=== PATIENT | male | born 1945 | race Caucasian/White ===

== ENCOUNTER 2016-11-21 08:57 | Day surgery (SDC) | payer MEDICARE, OTHER ==
[~2016-11-21] VITALS: Ht 172.7 cm; Wt 83.6 kg
--- NOTE | ~2016-11-21 | PRO ---
PATIENT:KOURTNEY TANG JR MEDICAL RECORD: [id number] : 49 LOCATION:D.OPS ADMISSION DATE: 11/21/16 PROCEDURE PERFORMED BY: TANO ALMARAZ MD DATE OF PROCEDURE: 11/21/2016 DATE OF PROCEDURE: 11/21/2016. HYDROSTATIC TUBING TESTER: Tano Almaraz MD. PROCEDURE: Flexible sigmoidoscopy with hemorrhoidal banding times 4. INDICATION: The patient is a 71-year-old white male with history of coronary artery disease, who basically presents for evaluation with 2-3 year history of progressive hematochezia bright red blood per rectum. He had a colonoscopy just last year, which revealed small to moderate size internal hemorrhoids and very mild sigmoid diverticulosis. He is now having a little prolapse as well and therefore was scheduled for flexible sigmoidoscopy with hemorrhoidal banding. PREMEDICATION: Taper anesthesia. INSTRUMENT: Olympus video gastroscope. FINDINGS: Rectal exam was normal. The gastroscope was passed through the rectum into the mid sigmoid colon without difficulty. The exam was normal other than lgule-md-cvhyulpt sized internal hemorrhoids as well as very mild sigmoid diverticulosis. I do not see any polyps or mass lesions. I therefore put the 6 shooter band on the tip of the scope, reinserted into the patient, and placed 4 bands in a circumferential manner just proximal to the dentate line with good results. The patient tolerated the procedure well without any immediate complications. IMPRESSION: 1. Small to moderate size internal hemorrhoids, now status post hemorrhoidal banding times 4. 2. Very mild sigmoid diverticulosis. 3. Otherwise, normal flexible sigmoidoscopy. PLAN: 1. Avoid straining with bowel movement. 2. Follow up with me as needed. 3. Repeat hemorrhoidal banding on a p.r.n. basis. TRANSINT:[id number] Voice Confirmation ID: [id number] DOCUMENT ID: [id number] PROCEDURE NOTE [id number] KOURTNEY TANG JR TANO ALMARAZ MD CC: CECELIA MOTLEY MD [id number] DICTATION DATE: 11/21/16 1249 CASHIER CLERK: 11/22/16 0151 [facility] 11/21/16 [facility] [address] [place] [address]
--- NOTE | ~2016-11-21 | HP ---
PATIENT: KOURTNEY TANG JR MEDICAL RECORD: [id number] ACCOUNT: [id number] LOCATION:[facility] : 49 ADMISSION DATE: 11/21/16 HISTORY AND PHYSICAL EXAMINATION REFERRING PHYSICIAN: Cecelia Motley MD. HISTORY OF PRESENT ILLNESS: The patient is a 71-year-old white male who basically presents with chronic hematochezia, has been progressive over the past 2-3 years. His last colonoscopy was in 2016 and reveals mild sigmoid diverticulosis and small internal hemorrhoids. Because of this persistent hematochezia, he is now considering possible hemorrhoidal banding. PAST MEDICAL HISTORY: As above. He also has had coronary artery disease and kidney stones and thyroid disease status post thyroidectomy. PHYSICAL EXAMINATION: GENERAL: Reveals a well-nourished white male in no acute distress. VITAL SIGNS: Stable. He is afebrile. CHEST: Clear. HEART: Regular rate and rhythm. ABDOMEN: Soft, nontender. EXTREMITIES: No edema. IMPRESSION: 1. Persistent somewhat progressive hematochezia, probably due to his known internal hemorrhoids and probably will need hemorrhoidal banding. 2. History of mild sigmoid diverticulosis. PLAN: Flex sig with probable banding. TRANSINT:[id number] Voice Confirmation ID: [id number] DOCUMENT ID: [id number] TANO MOSS MD CC: CECELIA MOTLEY MD [id number] DICTATION DATE: 11/21/16 1237 OLEOMARGARINE MAKER: 11/21/16 1443 [facility] 11/21/16 [id number] [place] [address]
[2016-11-21 09:53] LABS: BASOPHILS 0.5 % (0-2); EOSINOPHILS 2.6 % (0-7); HEMATOCRIT 42.3 % (42.0-54.0); HEMOGLOBIN 14.4 g/dL (13.5-17.5); IMMATURE GRANULOCYTES 0.2 % (0-5); LYMPHOCYTES 28.4 % (15-50); MCH 32.6 pg (26.0-34.0); MCV 95.7 fL (80.0-100.0); MEAN PLATELET VOLUME 10.9 fL (7.4-10.4); MONOCYTES 6.4 % (2-11); NEUTROPHILS 61.9 % (40-80); PLATELET COUNT 201 10x3/uL (130-400); RBC 4.42 10x6/uL (4.20-6.10); RDW 12.7 % (11.5-14.5); WBC 5.8 10x3/uL (4.8-10.8)
[2016-11-21 10:01] LABS: APTT 31.6 SECONDS (22.8-39.4); INR 0.99 (0.85-1.17); PROTIME 12.9 SECONDS (11.6-15.0)
[2016-11-21 10:30] VITALS: BP 153/82; Ht 172.7 cm; Wt 83.6 kg
[2016-11-21] MEDS ORDERED: COREG 3.1253.125 MG PO (10:32)
[2016-11-21] MEDS ORDERED: CARDIZEM CD240 MG PO (10:33)
[2016-11-21] MEDS ORDERED: LEVOTHYROXINE150 MCG PO (10:33)
[2016-11-21] MEDS ORDERED: ZOCOR20 MG PO (10:34)
[2016-11-21] MEDS ORDERED: EXELON1 PATCH .2 TRANSDERM (10:35)
[2016-11-21] MEDS ORDERED: PRINIVIL20 MG PO ×2 (10:36)
[2016-11-21] MEDS ORDERED: HYDROCHLOROTH12.5 M1 PO (10:36)
[2016-11-21] MEDS ORDERED: BAYER CHEWABLE81 MG PO (10:36)
[2016-11-21] MEDS ORDERED: VITAMIN D2000 UNIT PO (10:37)
[2016-11-21] MEDS ORDERED: FISH OIL 1,2001 CAP PO (10:37)
[2016-11-21] MEDS ORDERED: CINNAMON500 MG PO (10:38)
[2016-11-21] MEDS ORDERED: GARLIC (10:39)
[2016-11-21] MEDS ORDERED: VITAMIN B-12500 MC1 PO (10:39)
[2016-11-21] MEDS ORDERED: B-6 ×2 (10:40→10:41)
--- NOTE | 2016-11-21 14:29 | NUR ---
1400--IV DC'D, PT UP TO DRESS. HYACINTH KUMARI 1412--DISCHARGE INSTRUCTIONS GIVEN, PT VERBALIZES UNDERSTANDING. PT OFF UNIT VIA WC. HYACINTH KUMARI
== END 2016-11-21 14:15 | disposition home or self-care (01) ==
LOC: D.OPS 08:57 → D.ENDO 11:00 → D.OPS 11:00
PROVIDERS: Anesthesiology
DX: K64.8 Other hemorrhoids (principal); I10 Essential (primary) hypertension; E03.9 Hypothyroidism, unspecified; Z95.1 Presence of aortocoronary bypass graft; Z01.812 Encounter for preprocedural laboratory examination

== ENCOUNTER 2018-03-24 20:07 | Inpatient (IN) | payer MEDICARE, OTHER ==
[~2018-03-24] VITALS: Ht 172.7 cm; Wt 83.9 kg
--- NOTE | ~2018-03-24 | HP ---
PATIENT: KOURTNEY TANG JR MEDICAL RECORD: [id number] ACCOUNT: [id number] LOCATION:D.MS [facility] : 49 ADMISSION DATE: 03/24/18 PCP: CECELIA MOTLEY MD HISTORY AND PHYSICAL EXAMINATION DATE OF ADMISSION: 03/24/2018 CHIEF COMPLAINT: Abdominal pain, leg pain secondary to black bite. HISTORY OF PRESENT ILLNESS: The patient is a 72-year-old gentleman who had been apparently working in his yard, moving boulders. He felt a stinging pain in his abdomen. Then, he noticed a black . The patient states over the ensuing couple of hours, he became increasingly nauseated as well as having abdominal pain as well as leg pain, presented to the Emergency Room where it was felt the patient warranted admission. PAST MEDICAL HISTORY: Significant that he has had coronary artery bypass grafting. The patient also has had hypertension and hyperlipidemia. He has had hypothyroidism. FAMILY HISTORY: Father of heart disease. Mother of leukemia. SOCIAL HISTORY: The patient is a nonsmoker, nondrinker. He is , retired from [employer], [employer] which he is attended. ALLERGIES: He has no known drug allergies. MEDICATIONS: Include aspirin 81 mg once a day. He is also on carvedilol 3.125 p.o. b.i.d., diltiazem 240 mg b.i.d., hydrochlorothiazide 12.5 once a day, KCl 10 mEq once a day, levothyroxine 150 mcg once a day, lisinopril 20 mg p.o. b.i.d., simvastatin 20 mg once a day, Exelon patch 4.6 MG TRANSDERM changing daily, vitamin C 1000 mg tablets, vitamin D3 2000 international units once a day. REVIEW OF SYSTEMS: CONSTITUTIONAL: He denies any headaches, seizure or syncope. HEENT: Denies change in visual or auditory acuity. PULMONARY: He denies any shortness of breath, cough or congestion. CARDIOVASCULAR: No chest pain, palpitation, PND or orthopnea. GASTROINTESTINAL: He has had no chronic nausea, vomiting, melena or hematochezia. GENITOURINARY: No urgency, frequency, or dysuria. PHYSICAL EXAMINATION: VITAL SIGNS: In the Emergency Room, the patient's temperature was 97.9, his pulse 54, respirations 20, his blood pressure 177/78, his pulse 98. HEENT: Head is normocephalic. No lesions. Ears: TMs clear. Eyes: Pupils equal, round, reactive to light. His extraocular movements are intact. Nasal cavity, oral cavity, oropharynx clear. NECK: Supple. There is no adenopathy. HEART: Has a regular rate. LUNGS: Clear. ABDOMEN: Soft. He does have several superficial erythematous lesions on the anterior abdomen. EXTREMITIES: He has good strength, good range of motion. HISTORY AND PHYSICAL [id number] KOURTNEY TANG JR LABORATORY DATA: His white count was elevated at 11.6, hemoglobin 15.5, hematocrit 45.2, his platelets were 244. His cardiac enzymes are all unremarkable. His sodium was 144, potassium 3.3, chloride 105, CO2 is 27, BUN is 19, creatinine 1.0. Lactic acid was 2.3. Liver functions unremarkable. ASSESSMENT: Status post black bite. PLAN: The patient will be admitted for pain control as well as being placed on IV muscle relaxer as well as Solu-Medrol, IV hydration. Continue to evaluate. TRANSINT:[id number] Voice Confirmation ID: [id number] DOCUMENT ID: [id number] CECELIA MOTLEY MD at 0716 CC: [id number] DICTATION DATE: 03/25/18744 INDUSTRIAL COMMERCIAL GROUNDSKEEPER: 03/25/18823 [facility] [place] 03/27/18 [facility] [address] [place] [address]
--- NOTE | ~2018-03-24 | DS ---
PATIENT:KOURTNEY TANG JR :49 MEDICAL RECORD: [id number] DISCHARGE SUMMARY ADMISSION DATE: 03/24/18 DISCHARGE DATE: 03/27/18 DATE OF ADMISSION: 03/24/2018 DATE OF DISCHARGE: 03/27/2018 ADMISSION DIAGNOSIS: Abdominal and leg pain secondary to black spider bite. DISCHARGE DIAGNOSIS: Abdominal and leg pain secondary to black spider bite. HOSPITAL COURSE: The patient had an uneventful hospital course. He was admitted. Pain control initially with IV meds, changed to p.o. hydrocodone 7.5, good pain control. The patient is anxious to discharge home. Still having pain but is well controlled with oral medications. He is discharged to home in significantly improved condition. PHYSICAL EXAMINATION: VITAL SIGNS ON DISCHARGE: Temperature 98.4, blood pressure 150/68, heart rate 60, respirations 20, O2 sats 93% room air. HEART: Regular rate and rhythm. LUNGS: Clear. ABDOMEN: Soft, bowel sounds positive. EXTREMITIES: Present times 4. No rash. No swelling. DISPOSITION: The patient is discharged on oral prednisone taper, p.o. hydrocodone 7.5 one p.o. q. 6 hours p.r.n. DISCHARGE INSTRUCTIONS: Will follow up with Dr. Altamirano next week, will resume his home medications, see chart for further details. TRANSINT:[id number] Voice Confirmation ID: [id number] DOCUMENT ID: [id number] SHAZIA BEACH DO at 1030 CC: [id number] DICTATION DATE: 03/27/18 1501 CONSUMER SALES REPRESENTATIVE: 03/28/18 0356 [facility] 03/27/18 [place] [address]
[~2018-03-24 20:07] MED LIST: B-6; BAYER CHEWABLE81 MG PO; CARDIZEM CD240 MG PO; CINNAMON500 MG PO; COREG 3.1253.125 MG PO; EXELON1 PATCH .2; FISH OIL 1,2001 CAP PO; GARLIC; HYDROCHLOROTH12.5 M1 PO; LEVOTHYROXINE150 MCG PO; PRINIVIL20 MG PO; VITAMIN B-12500 MC1 PO; VITAMIN D2000 UNIT PO; ZOCOR20 MG PO
[2018-03-24 20:49] LABS: BASOPHILS 0.4 % (0-2); EOSINOPHILS 1.9 % (0-7); HEMATOCRIT 45.2 % (42.0-54.0); HEMOGLOBIN 15.5 g/dL (13.5-17.5); IMMATURE GRANULOCYTES 0.2 % (0-5); LYMPHOCYTES 13.9 % (15-50); MCH 32.5 pg (26.0-34.0); MCHC 34.3 g/dL (31.0-37.0); MCV 94.8 fL (80.0-100.0); MEAN PLATELET VOLUME 11.3 fL (7.4-10.4); MONOCYTES 4.7 % (2-11); NEUTROPHILS 78.9 % (40-80); RBC 4.77 10x6/uL (4.20-6.10); RDW 13.3 % (11.5-14.5); WBC 11.6 10x3/uL (4.8-10.8)
[2018-03-24 20:50] LABS: PLATELET COUNT 244 10x3/uL (130-400)
[2018-03-24 21:02] LABS: APTT 28.3 SECONDS (22.8-39.4); INR 0.96 (0.85-1.17); PROTIME 12.4 SECONDS (11.6-15.0)
[2018-03-24 21:04] LABS: D-DIMER-QUANTITATIVE < 0.27 ug/mLFEU (0.20-0.54)
[2018-03-24 21:10] LABS: ALBUMIN 4.2 g/dL (3.4-5.0); ALKALINE PHOSPHATASE 103 U/L (46-116); ALT (SGPT) 22 U/L (10-68); BILIRUBIN - TOTAL 0.57 mg/dL (0.2-1.3); CALCIUM 8.8 mg/dL (8.5-10.1); CARBON DIOXIDE 27.1 mmol/L (21.0-32.0); CHLORIDE - SERUM 105 mmol/L (98-107); CREATININE - SERUM 1.2 mg/dL (0.6-1.3); POTASSIUM - SERUM 3.3 mmol/L (3.5-5.1); PROTEIN - SERUM 7.9 g/dL (6.4-8.2); SODIUM 144 mmol/L (136-145); UREA NITROGEN 19 mg/dL (7-18); eGFR NON AFRICAN AMERICAN 64 mL/min (90-120)
[2018-03-24 21:20] LABS: CKMB 1.2 U/L (0.0-3.6); CREATINE KINASE 159 UL (21-232)
[2018-03-24 21:30] VITALS: BP 177/78
[2018-03-24 21:38] LABS: CALC OSMOLALITY 293 mosm/kg (275-300); GLUCOSE 191 mg/dL (74-106); TROPONIN-I < 0.017 ng/mL (0.000-0.060)
[2018-03-24 22:00] VITALS: BP 195/90
[2018-03-24 22:14] LABS: APPEARANCE CLEAR (CLEAR); BILIRUBIN NEGATIVE (NEGATIVE); COLOR YELLOW (YELLOW); GLUCOSE NEGATIVE (NEGATIVE); KETONE NEGATIVE (NEGATIVE); NITRITE NEGATIVE (NEGATIVE); PROTEIN NEGATIVE (NEGATIVE); SPECIFIC GRAVITY 1.015 (1.005-1.020); UROBILINOGEN NORMAL (NORMAL)
[2018-03-24 22:24] LABS: WHITE CELLS - URINE OCC /hpf (0-5)
[2018-03-24 22:30] VITALS: BP 167/81
[2018-03-24] MEDS ORDERED: KLOR-CON 1010 MEQ PO (23:49)
[2018-03-25 01:20] VITALS: BP 188/87; BMI 28.1
[2018-03-25 04:56] LABS: BASOPHILS 0.1 % (0-2); EOSINOPHILS 0 % (0-7); HEMOGLOBIN 15.1 g/dL (13.5-17.5); IMMATURE GRANULOCYTES 0.2 % (0-5); LYMPHOCYTES 10.8 % (15-50); MCH 32.5 pg (26.0-34.0); MCHC 34.3 g/dL (31.0-37.0); MCV 94.6 fL (80.0-100.0); MONOCYTES 0.2 % (2-11); NEUTROPHILS 88.7 % (40-80); PLATELET COUNT 259 10x3/uL (130-400); RBC 4.65 10x6/uL (4.20-6.10); RDW 13.5 % (11.5-14.5); WBC 9.7 10x3/uL (4.8-10.8)
[2018-03-25 05:24] LABS: ALBUMIN 4.2 g/dL (3.4-5.0); ALKALINE PHOSPHATASE 105 U/L (46-116); ALT (SGPT) 24 U/L (10-68); BILIRUBIN - TOTAL 0.43 mg/dL (0.2-1.3); CALC OSMOLALITY 276 mosm/kg (275-300); CALCIUM 8.7 mg/dL (8.5-10.1); CARBON DIOXIDE 28.2 mmol/L (21.0-32.0); CHLORIDE - SERUM 103 mmol/L (98-107); CREATINE KINASE 168 UL (21-232); CREATININE - SERUM 1.1 mg/dL (0.6-1.3); GLUCOSE 166 mg/dL (74-106); POTASSIUM - SERUM 3.1 mmol/L (3.5-5.1); PROTEIN - SERUM 7.9 g/dL (6.4-8.2); SODIUM 136 mmol/L (136-145); TROPONIN-I < 0.017 ng/mL (0.000-0.060); eGFR NON AFRICAN AMERICAN 70 mL/min (90-120)
[2018-03-25 05:25] LABS: UREA NITROGEN 14 mg/dL (7-18)
[2018-03-25 06:18] VITALS: BP 183/90
[2018-03-25 08:09] VITALS: BP 179/89
[2018-03-25 09:13] LABS: CKMB 1.8 U/L (0.0-3.6); CREATINE KINASE 192 UL (21-232); TROPONIN-I < 0.017 ng/mL (0.000-0.060)
[2018-03-25 12:54] VITALS: BP 145/54
[2018-03-25 13:40] VITALS: Ht 172.7 cm; Wt 83.9 kg
[2018-03-25 15:43] LABS: CKMB 2.8 U/L (0.0-3.6); CREATINE KINASE 295 UL (21-232); POTASSIUM - SERUM 3.1 mmol/L (3.5-5.1); TROPONIN-I < 0.017 ng/mL (0.000-0.060)
[2018-03-25 16:00] VITALS: BP 158/70
[2018-03-25 21:45] VITALS: BP 107/77
[2018-03-26 05:09] VITALS: BP 151/66
[2018-03-26 05:27] LABS: HEMOGLOBIN 13.3 g/dL (13.5-17.5); MCH 32.1 pg (26.0-34.0); MCHC 34.1 g/dL (31.0-37.0); MCV 94.2 fL (80.0-100.0); MEAN PLATELET VOLUME 11.8 fL (7.4-10.4); PLATELET COUNT 246 10x3/uL (130-400); RBC 4.14 10x6/uL (4.20-6.10); RDW 13.7 % (11.5-14.5); WBC 20.9 10x3/uL (4.8-10.8)
[2018-03-26 05:53] LABS: ALBUMIN 3.6 g/dL (3.4-5.0); ALKALINE PHOSPHATASE 83 U/L (46-116); ALT (SGPT) 21 U/L (10-68); BILIRUBIN - TOTAL 0.39 mg/dL (0.2-1.3); CALC OSMOLALITY 277 mosm/kg (275-300); CALCIUM 8.4 mg/dL (8.5-10.1); CARBON DIOXIDE 28.7 mmol/L (21.0-32.0); CHLORIDE - SERUM 103 mmol/L (98-107); GLUCOSE 151 mg/dL (74-106); PROTEIN - SERUM 6.7 g/dL (6.4-8.2); SODIUM 136 mmol/L (136-145); eGFR NON AFRICAN AMERICAN 78 mL/min (90-120)
[2018-03-26 05:55] LABS: UREA NITROGEN 20 mg/dL (7-18)
[2018-03-26 07:21] LABS: HYPOCHROMASIA OCC; LYMPHOCYTES 8 % (15-50); MONOCYTES 9 % (2-11); NEUTROPHILS 77 % (40-80); PLATELET ESTIMATE NORMAL
[2018-03-26 08:13] VITALS: BP 149/55
[2018-03-26 12:00] VITALS: BP 164/62
[2018-03-26 20:00] VITALS: BP 178/81
[2018-03-27 04:00] VITALS: BP 150/68
[2018-03-27] MEDS ORDERED: NORCO 7.5/325 T1 TA1 PO (14:51)
[2018-03-27] MEDS ORDERED: PREDNISONE10 MG PO (14:53)
[2018-03-27 16:31] VITALS: BP 158/67
== END 2018-03-27 19:30 | disposition home or self-care (01) | DRG 918 ==
LOC: D.ER 20:07 → D.MS 22:31
PROVIDERS: Family Medicine
DX: T63.311A Toxic effect of venom of black widow spider, accidental (unintentional), initial encounter (principal); I10 Essential (primary) hypertension; E78.5 Hyperlipidemia, unspecified; E03.9 Hypothyroidism, unspecified; Z95.1 Presence of aortocoronary bypass graft

== ENCOUNTER → 2019-05-26 08:41 | Outpatient (CLI) | payer MEDICARE, OTHER ==
[2018-03-25 13:40] VITALS: BMI 28.1
[~2019-05-26 08:41] MED LIST changes: +KLOR-CON 1010 MEQ PO; +NORCO 7.5/325 T1 TA1 PO; +PREDNISONE10 MG PO
== END | disposition home or self-care (01) ==
LOC: D.HCCARDIO 08:41
PROVIDERS: ATTEND Internal Medicine Cardiovascular Disease
DX: I25.10 Atherosclerotic heart disease of native coronary artery without angina pectoris (principal)

== ENCOUNTER → 2019-06-28 14:07 | Outpatient (CLI) | payer MEDICARE, OTHER ==
[2018-03-25 13:40] VITALS: BMI 28.1
== END | disposition home or self-care (01) ==
LOC: D.HCCECHO 14:07
PROVIDERS: ATTEND Internal Medicine Cardiovascular Disease
DX: I10 Essential (primary) hypertension (principal)

== ENCOUNTER → 2020-09-27 09:21 | Outpatient (CLI) | payer MEDICARE, OTHER ==
[2018-03-25 13:40] VITALS: BMI 28.1
== END | disposition home or self-care (01) ==
LOC: D.HCCARDIO 09:21
PROVIDERS: ATTEND Internal Medicine Cardiovascular Disease
DX: I25.10 Atherosclerotic heart disease of native coronary artery without angina pectoris (principal)

== ENCOUNTER 2020-10-09 07:32 | Day surgery (SDC) | payer MEDICARE, OTHER ==
[~2020-10-09] VITALS: Ht 172.7 cm; Wt 80.7 kg
--- NOTE | ~2020-10-09 | HEMODYNAMI ---
PATIENT:KOURTNEY TANG JR MEDICAL RECORD: [id number] : 49 LOCATION:[facility] ADMISSION DATE: 10/09/20 Generatedon:19:52 Patient name: KOURTNEY TANG Patient #: [id number] SSN: [id number] : 1945 Date of study: 10/09/2020 Page: Of Hemodynamic Procedure Report Patient Data Patient Demographics Procedure consent was obtained First Name: KOURTNEY Gender: Male Last Name: CLYDE Suffix: [facility] Initial: Darcie : 1945 Patient #: [id number] Age: 75 year(s) Race: SSN: [id number] Additional ID: [id number] Contact details Address: [address] [place] [address] rd State: [place] City: [place] Zip code: [address] Past Medical History Allergies: No known allergies Admission Admission Data Admission Date: 10/09/2020 Admission Time: 7:32 Arrival Date: 10/09/2020 Arrival Time: 0:00 Admit Source: Other Insurance Payor: Medicare [facility] #: [id number] Procedure Procedure Types Cath Procedure Diagnostic Procedure LHC LHC w/Coronaries w/Grafts Sedation Charges Moderate Sedation 10-24 minutes Procedure Description Procedure Date Procedure Date: 10/09/2020 Procedure Start Time: 9:31 Procedure Staff Name Function Keith Godoy MD Performing Physician Marielena Jones RT Monitor Brittany Mesa RT Scrub Levi Ortiz RN Nurse Procedure Data Cath Procedure Fluoroscopy Diagnostic fluoroscopy Total fluoroscopy Time: 4.4 time: 4.4 min min Diagnostic fluoroscopy Total fluoroscopy dose: 733 dose: 733 mGy mGy Contrast Material Contrast Material Type Amount (ml) Isovue 300 106 Entry Location Entry Primary Successful Side Size Upsize Upsize Entry Closure Succes sful Closure Location (Fr) 1 (Fr) 2 (Fr) Remarks Device Remarks Femoral Right 5 Fr Exoseal artery Estimated blood loss: 5 ml Diagnostic catheters Device Type Used For End Catheter Placement MULTIPACK JL 4.0 5Fr Left Coronary catheter Angiography MULTIPACK 3DRC 5Fr Right Coronary catheter Angiography MULTIPACK 3DRC 5Fr SVG Angiography catheter DIAGNOSTIC AR MOD 5Fr SVG Angiography Catheter ([id number]) DIAGNOSTIC IM 5Fr Internal mammary catheter ([id number]) arteriography MULTIPACK Pigtail 5 Fr Aortic Root catheter Angiography MULTIPACK Pigtail 5 Fr LV Angiography catheter Procedure Complications No complications Procedure Medications Medication Administration Route Dosage 0.9% NaCl I.V. 100 ml/hr Oxygen etCO2 Nasal cannula 2 l/min Heparin Flush Bag added to field 2 bags (1000units/500ml NS) Lidocaine 2% added to field 20 Versed I.V. 1 mg Fentanyl I.V. 50 mcg Versed I.V. 1 mg Fentanyl I.V. 50 mcg Hemodynamics Rest Heart Rate: 45 (bpm) Pressure Samples Time Site Value (mmHg) Purpose Heart Use Rate(bpm) 9:33 AO 146/66(94) Snapshot 46 9:43 LV 127/6,24 Snapshot 47 9:43 AO 145/62(95) Pullback 55 9:43 LV 181/-10,80 Pullback 55 Gradients Valve Time Site 1 Site 2 Mean SEP/DFP Peak To Heart Use (mmHg) (sec/min) Peak Rate (mmHg) (bpm) Aortic 9:43 LV AO 14 23 36 55 181/-10,80 145/62(95) Calculations Valve P-P Mean Valve Index Valve Source Name Gradient Area Flow (cm2) Aortic 36 14 36 14 Snapshots Pre Cath Intra NCS Post Cath Vital Signs Time Heart Resp SPO2 etCO2 NIBP (mmHg) Rhythm Pain Sedation Rate (ipm) (%) (mmHg) Status Level (bpm) 9:14:56 55 19 98 35.2 170/87(140) NSR 0 (11) 10(A) , No pain 9:19:22 48 14 96 1.5 143/76(106) NSR 0 (11) 10(A) , No pain 9:23:38 45 20 96 1.4 132/74(106) NSR 0 (11) 10(A) , No pain 9:27:50 40 10 96 2.2 142/75(104) NSR 0 (11) 10(A) , No pain 9:32:08 41 10 96 48.7 158/67(87) NSR 0 (11) 10(A) , No pain 9:36:30 50 19 96 31.5 134/71(115) NSR 0 (11) 10(A) , No pain 9:40:43 48 11 95 17.2 151/76(110) NSR 0 (11) 10(A) , No pain 9:45:02 51 21 97 39.7 153/73(113) NSR 0 (11) 10(A) , No pain 9:49:25 48 11 97 12.7 157/70(118) NSR 0 (11) 10(A) , No pain Medications Time Medication Route Dose Verified Delivered Reason Notes Effe ctiveness by by 9:15:26 0.9% NaCl I.V. 100 Levi Levi Per ml/hr Angel Ortiz physician RN RN 9:15:34 Oxygen etCO2 2 Levi Levi for low 02 Nasal l/min Lorigan Lorigan sats cannula RN RN 9:15:44 Heparin Flush added 2 Levi Levi used for Bag to bags Lorigan Lorigan procedure (1000units/500ml field RN RN NS) 9:15:54 Lidocaine 2% added 20ml Levi Levi for local to vial Lorigan Lorigan anesthetic field RN RN 9:30:54 Versed I.V. 1 mg Levi Levi for Lorigan Lorigan sedation RN RN 9:31:01 Fentanyl I.V. 50 Levi Levi for mcg Lorigan Lorigan sedation RN RN 9:42:18 Versed I.V. 1 mg Levi Levi for Lorigan Lorigan sedation RN RN 9:42:23 Fentanyl I.V. 50 Levi Levi for mcg Lorigan Lorigan sedation RN logistics support Log Time Note 8:43:50 Informed consent obtained and on chart 8:44:16 Diagnostic Cath Status : Elective 8:44:31 Arrival Date: 10/09/2020 12:00:00 AM 8:44:36 Admit Source: Other 8:44:41 Insurance Payor : Medicare 8:57:45 Levi Ortiz RN sent for patient. Start room use. 8:57:47 Time tracking: Regular hours (M-F 7:00 - 5:00) 8:57:52 Plan of Care:Hemodynamics will remain stable., Cardiac rhythm will remain stable., Comfort level will be maintained., Respiratory function will remain adequate., Patient/ family verbilizes understanding of procedure., Procedure tolerated without complication., Recovers from procedure without complications.. 9:04:04 Patient received from Pre/Post Procedure Room to CCL 2 Alert and oriented. Tansferred to table in Supine position. 9:04:05 Warm blankets applied, and evette hugger turned on for patient comfort. 9:04:06 Correct patient and procedure confirmed by team. 9:04:06 ECG and BP/O2 sat monitors applied to patient. 9:04:08 Full Disclosure recording started 9:12:48 Vital chart was started 9:12:51 Rhythm: sinus bradycardia 9:13:10 H&P Date Dictated: 09/19/2020 Within 30 days and on chart., H&P Addendum completed by physician on day of procedure. (MUST COMPLETE FOR ALL OUTPATIENTS). 9:13:11 Pre-procedure instructions explained to patient. 9:13:11 Pre-op teaching completed and patient verbalized understanding. 9:14:46 Family in patients room. 9:14:47 Patient NPO since Midnight. 9:14:55 Patient allergic to No known allergies 9:14:57 Is the patient allergic to Iodine/contrast media? No. 9:14:59 Is patient on blood thinner?No 9:15:15 Bleeding risk .1%. 9:15:17 Patient diabetic? No. 9:15:20 Previous problem with sedation/anesthesia? No ? 9:15:21 Snore? Yes 9:15:22 Sleep apnea? No 9:15:23 Deviated septum? No 9:15:24 Opens mouth fully? Yes 9:15:24 Sticks out tongue? Yes 9:15:26 0.9% NaCl 100 ml/hr I.V. was administered by Levi Ortiz RN; Per physician; Verbal order read back and verified. 9:15:26 Airway obstruction? No ? 9:15:27 Dentures? No ? 9:15:34 Oxygen 2 l/min etCO2 Nasal cannula was administered by Levi Ortiz RN; for low 02 sats; Verbal order read back and verified. 9:15:44 Heparin Flush Bag (1000units/500ml NS) 2 bags added to field was administered by Levi Ortiz RN; used for procedure; Verbal order read back and verified. 9:15:54 Lidocaine 2% 20ml vial added to field was administered by Levi Ortiz RN; for local anesthetic; Verbal order read back and verified. 9:17:22 Pre procedure: right dorsailis pedis pulse 2+ Normal; easily identifiable; not easily obliterated 9:17:27 Patient pain scale 0/10 ?. 9:17:33 IV patent on arrival in left forearm with 0.9% NaCl at O. 9:17:40 Lab results completed and on chart. 9:17:46 Stress Test: yes; abnormal INFERIOR 9:17:49 Risk of Mortality: .1 9:17:52 Risk of blood transfusion: .2 9:17:54 Risk of JARETH: .2 9:17:57 Right groin area was prepped with chlora-prep and draped in sterile fashion 9:17:58 Alarms reviewed by R. N. 9:17:59 Sharps counted by scrub and verified by R.N. 9:18:03 Use device set Femoral Dx 9:18:04 ACIST Syringe (96470) opened to sterile field. 9:18:05 Bag Decanter (2002S) opened to sterile field. 9:18:05 Medline Cath Pack ([id number]) opened to sterile field. 9:18:07 ACIST Hand Control (49378) opened to sterile field. 9:18:07 ACIST Manifold (82332) opened to sterile field. 9:18:08 DIAGNOSTIC Multipack 5Fr catheter set (EU7418) opened to sterile field. 9:18:14 EMERALD Guide Wire (502-925) opened to sterile field. 9:18:15 SHEATH 5FR [place] (CUH899) opened to sterile field. 9:18:30 Baseline sample Acquired. 9:25:41 Zero performed for pressure channel P1 9:30:08 Final Timeout: patient, procedure, and site verified with staff and physician. All members of the team are in agreement. 9:30:10 Right groin site verified by team. 9:30:13 Fire Safety Assessment: A--An alcohol-based skin anteseptic being used preoperatively., C--Open oxygen or nitrous oxide is being used., D--An ESU, laser, or fiber-optic light is being used. 9:30:16 Physical assessment completed. ASA score P 2 - A patient with mild systemic disease as per Keith Godoy MD. 9:30:41 2) 60-89 Mildly reduced kidney function, and other findings (as for stage 1) point to kidney disease. 9:30:43 Maximum allowable contrast dose (3.7 X eGFR X 0.75)244 ml. 9:30:47 Sedation plan: IV Moderate Sedation Medication:Versed, Fentanyl 9:30:52 Procedure started. 9:30:54 Versed 1 mg I.V. was administered by Levi Ortiz RN; for sedation; Verbal order read back and verified. 9:31:01 Fentanyl 50 mcg I.V. was administered by Levi Ortiz RN; for sedation; Verbal order read back and verified. 9:31:01 Local anesthetic to right femoral artery with Lidocaine 2% by Keith Godoy MD.INITIAL ACCESS ONLY 9:32:55 A 5 Fr sheath was inserted into the Right Femoral artery 9:33:30 A MULTIPACK JL 4.0 5Fr catheter was advanced over the wire and used for Left Coronary Angiography. 9:34:34 Catheter removed. 9:35:29 A MULTIPACK 3DRC 5Fr catheter was advanced over the wire and used for Right Coronary Angiography. 9:36:41 A MULTIPACK 3DRC 5Fr catheter was advanced over the wire and used for SVG Angiography.TO RCA 9:37:31 Catheter removed. 9:39:15 A DIAGNOSTIC AR MOD 5Fr Catheter ([id number]) was advanced over the wire and used for SVG Angiography. 9:39:18 Catheter removed. 9:39:30 A DIAGNOSTIC IM 5Fr catheter ([id number]) was advanced over the wire and used for Internal mammary arteriography.TO LAD 9:41:52 Catheter removed. 9:42:18 Versed 1 mg I.V. was administered by Levi Ortiz RN; for sedation; Verbal order read back and verified. 9:42:23 Fentanyl 50 mcg I.V. was administered by Levi Ortiz RN; for sedation; Verbal order read back and verified. 9:42:28 A MULTIPACK Pigtail 5 Fr catheter was advanced over the wire and used for LV Angiography. 9:43:31 LV gram done using PILLAI 9:43:32 LV hemodynamics recorded. 9:43:36 EF : 50 % 9:44:09 A MULTIPACK Pigtail 5 Fr catheter was advanced over the wire and used for Aortic Root Angiography. 9:46:46 Catheter removed. 9:46:58 Sheath removed intact; hemostasis achieved with Exoseal to the Right Femoral artery. 9:47:00 Procedure ended.(Physican Out) 9:47:29 Fluoroscopy time 04.40 minutes. 9:47:35 Flurop Dose total: 733 9:47:35 Fluoroscopy dose: 733 mGy 9:47:47 Dose Area Product 103 mGy/cm. 9:47:51 Contrast amount:Isovue 300 106ml. 9:47:54 Maximum allowable dose exceeded? No. 9:47:55 Sharps counted by scrub and verified by R.N. 9:47:57 Insertion/operative site no bleeding no hematoma. 9:48:02 Post-op/insertion site Right Femoral artery dressed using a 4 x 4 and Tegaderm. 9:48:05 Post right femoral artery:stable, clean and dry 9:48:09 Post Procedure Pulses reassessed and unchanged 9:48:17 Post-procedure physical assessment completed. ASA score P 2 - A patient with mild systemic disease as per Keith Godoy MD. 9:48:21 Post procedure rhythm: unchanged. 9:48:25 Estimated blood loss: 5 ml 9:48:26 Post procedure instruction explained to patient.Patient verbalizes understanding. 9:48:27 Patient needs reinforcement of post procedure teaching. 9:48:42 Procedure type changed to Cath procedure, Diagnostic procedure, LHC, LHC w/Coronaries w/Grafts, Sedation Charges, Moderate Sedation 10-24 minutes 9:48:45 Procedure and supply charges have been captured, reviewed, submitted and are correct. 9:48:48 Procedure Complication : No complications 9:48:52 Operative report dictated upon procedure completion. 9:48:53 See physician's report for complete and final results. 9:49:08 Report given to Pre/Post Procedure Room. 9:49:27 EXOSEAL 5Fr (EX500) opened to sterile field. 9:49:28 Tegaderm 4 x 4 (1626W) opened to sterile field. 9:49:45 Patient transfered to Pre/Post Procedure Room with Stretcher. 9:51:21 End room use (Document Last) 9:51:49 End room use (Document Last) 9:52:00 Brittany Mesa RT(R) was relieved by Marielena Counts RT(R) as monitoring person 9:52:00 End room use (Document Last) 9:52:20 End room use (Document Last) 9:52:27 Marielena Counts RT(R) was relieved by Marielena Counts RT(R) as monitoring person 9:52:27 End room use (Document Last) 9:52:57 Vital chart was stopped Device Usage Item Name Manufacture Quantity Catalog Hospital Part Current Minimal L ot# / Number Charge Number Stock Stock Serial# Code ACIST Acist 1 80732 924998 236011 248622 20 Syringe Medical (47701) Systems Inc Bag Microtek 1 643139 93356 915360 5 Decanter Medical Inc. () Medline Medline 1 [id number] 242045 39025 575371 5 Cath Pack ([id number]) ACIST Hand Acist 1 05759 732831 450692 656949 5 Control Medical (58605) Systems Inc ACIST Acist 1 16047 086121 114034 659216 5 Manifold Medical (29051) Systems Inc DIAGNOSTIC Cardinal 1 [id number] 739950 51580 533596 30 Multipack Health 5Fr catheter set (KQ5869) EMERALD Cardinal 1 502-455 900923 721879 755244 5 Guide Wire Health (502-455) SHEATH 5FR Terumo 1 IIP307 091608 558039 466885 5 [place] (GSU527) MULTIPACK Cardinal 1 472192 5 JL 4.0 5Fr Health catheter MULTIPACK Cardinal 1 083628 5 3DRC 5Fr Health catheter DIAGNOSTIC Cardinal 1 [id number] 966410 710474 328731 15 AR MOD 5Fr Health Catheter (886051V) DIAGNOSTIC Cardinal 1 156008C 731451 987571 535855 5 IM 5Fr Health catheter ([id number]) MULTIPACK Cardinal 1 915827 5 Pigtail 5 Health Fr catheter EXOSEAL 5Fr Cardinal 1 EX500 556461 141570 796046 10 (EX500) Health Tegaderm 4 3M 1 1626W 856384 495485 647744 5 x 4 (1626W) Signature Audit [place] Stage Time Signature Unsigned Intra-Procedure 10/09/2020 Levi 9:51:49 AM Angel KUMARI Intra-Procedure 10/09/2020 Marielena 9:52:20 AM Counts RT(R) Intra-Procedure 10/09/2020 Keith Godoy MD 9:52:55 AM Signatures Performing Physician : Signature : Keith Godoy MD Date : Time : Monitor : Marielena Signature : Counts RT Date : Time : Nurse : Levi Lorigan Signature : RN Date : Time : [address] [place] [address]
[2020-10-09] MEDS ORDERED: HYDRALAZINE HCL50 MG PO (07:52)
[2020-10-09] MEDS ORDERED: KLOR-CON M2020 MEQ PO (07:55)
[2020-10-09] MEDS ORDERED: LEVOTHYROXINE175 MCG PO (07:56)
[2020-10-09] MEDS ORDERED: EXELON 13.3 M13.3 MG TRANSDERM (07:57)
[2020-10-09 08:09] VITALS: BP 126/69; Ht 172.7 cm; Wt 80.7 kg
[2020-10-09 08:32] LABS: ALT (SGPT) 31 U/L (10-68); CALC OSMOLALITY 289 mosm/kg (275-300); CALCIUM 9.1 mg/dL (8.5-10.1); CARBON DIOXIDE 27.2 mmol/L (21.0-32.0); CHLORIDE - SERUM 107 mmol/L (98-107); CHOLESTEROL, TOTAL 127 mg/dL (0-200); CREATININE - SERUM 0.9 mg/dL (0.6-1.3); GLUCOSE 105 mg/dL (74-106); HDL CHOLESTEROL 65 mg/dL (32-96); LDL CHOLESTEROL 42 mg/dL (0-100); LDL-HDL RATIO 0.6 ratio (1.5-3.5); POTASSIUM - SERUM 3.5 mmol/L (3.5-5.1); SODIUM 145 mmol/L (136-145); TRIGLYCERIDE 100 mg/dL (30-200); UREA NITROGEN 15 mg/dL (7-18); eGFR NON AFRICAN AMERICAN 88 mL/min (90-120)
[2020-10-09 08:51] LABS: BASOPHILS 0.8 % (0-2); EOSINOPHILS 4.3 % (0-7); HEMATOCRIT 42.9 % (42.0-54.0); HEMOGLOBIN 14.2 g/dL (13.5-17.5); IMMATURE GRANULOCYTES 0.3 % (0-5); LYMPHOCYTE ABS# 1.48 10x3/uL (1.32-3.57); LYMPHOCYTES 24.5 % (15-50); MCH 31.6 pg (26.0-34.0); MCHC 33.1 g/dL (31.0-37.0); MCV 95.3 fL (80.0-100.0); NEUTROPHIL ABS# 3.88 10x3/uL (1.78-5.38); NEUTROPHILS 64.1 % (40-80); PLATELET COUNT 270 10x3/uL (130-400); RDW 13.4 % (11.5-14.5); WBC 6.1 10x3/uL (4.8-10.8)
--- NOTE | 2020-10-09 10:00 | NUR ---
PT ARRIVED BY STRETCHER. PLACED ON MONITORS. ASSESSMENT COMPLETED. VSS AT THIS TIME. CALL LIGHT WITHIN REACH. FAMILY AT BEDSIDE.
--- NOTE | 2020-10-09 10:15 | NUR ---
RIGHT GROIN DRESSING C/D/I. NO S/S OF HEMATOMA NOTED. VSS AT THIS TIME. RIGHT PEDAL PULSE PRESENT. PT RESTING COMFORTABLY.
--- NOTE | 2020-10-09 10:45 | NUR ---
RIGHT GROIN DRESSING C/D/I. NO S/S OF HEMATOMA NOTED. RIGHT PEDAL PULSE PALPABLE. VSS AT THIS TIME. CALL LIGHT WITHIN REACH.
--- NOTE | 2020-10-09 11:30 | NUR ---
RIGHT GROIN DRESSING C/D/I. NO S/S OF HEMATOMA NOTED. HEAD OF BED INC TO 30 DEGREES. TOLERATED WELL. PT DOES NOT WANT TO EAT RIGHT NOW. STILL DROWSY FROM PROCEDURE. TOLERATING SIPS OF WATER. DENIES NAUSEA/PAIN. CALL LIGHT WITHIN REACH.
--- NOTE | 2020-10-09 12:20 | NUR ---
RIGHT GROIN DRESSING C/D/I. NO S/S OF HEMATOMA NOTED. RIGHT PEDAL PULSE PALPABLE. PIV D/C'D WITH CATH TIP INTACT. TOLERATED WELL. PT INSTRUCTED TO GET UP AND DRESSED AT THIS TIME. FAMILY AT BEDSIDE TO ASSIST. CALL LIGHT LEFT WITHIN REACH.
--- NOTE | 2020-10-09 12:30 | NUR ---
[facility] CALLED INTO PHARMACY PER DR. ESPINO REQUEST. PT REQUESTED [facility] [place]. LEFT RECORDING WITH CALL BACK NUMBER.
[2020-10-09] MEDS ORDERED: ISOSORBIDE MONO30 M1 PO (12:35)
--- NOTE | 2020-10-09 12:40 | NUR ---
RIGHT GROIN DRESSING C/D/I. NO S/S OF HEMATOMA NOTED. DISCUSSED DISCHARGE INSTRUCTIONS WITH PT AND PT'S . THEY VOICED UNDERSTANDING.
--- NOTE | 2020-10-09 12:55 | NUR ---
PT AMBULATED TO RESTROOM. VOIDED WITHOUT DIFFICULTY. STEADY GAIT NOTED. PT TAKEN OUT TO VEHICLE BY WHEELCHAIR. NO S/S OF DISTRESS NOTED. ALL BELONGINGS AND PAPERWORK IN HAND.
== END 2020-10-09 12:55 | disposition home or self-care (01) ==
LOC: D.CATH 07:32
PROVIDERS: ATTEND Internal Medicine Cardiovascular Disease
DX: I25.118 Atherosclerotic heart disease of native coronary artery with other forms of angina pectoris (principal); R94.39 Abnormal result of other cardiovascular function study; I10 Essential (primary) hypertension; E78.5 Hyperlipidemia, unspecified